=== PATIENT | female | born 1970 | race American Indian/Alaskan Native ===

== ENCOUNTER 2018-07-18 16:24 | Emergency (ER) | payer SELFPAY ==
[2018-07-18] MEDS ORDERED: ZOFRAN IV ONE (16:57)
--- NOTE | 2018-07-18 17:06 | Emergency Department Report ---
ED Fall HPI - General Chief Complaint: Dyspnea/Respdistress Stated Complaint: DIFFICULTY BREATHING Time Seen by Provider: 07/18/18 16:53 Source: patient, EMS Mode of arrival: Stretcher - History of Present Illness Initial Comments: Patient is 47 years old female with no significant past medical history. Patient presented to the ER complaining of left lower chest pain after fall 3 days ago. Patient stated that she slipped and fell landed on her left side. Patient is complaining of shortness of breath and pain when she take a deep breath with movement also. Patient denied any head injury, neck injury. Patient denied any other symptoms. MD Complaint: fall -: days(s) Fall From: standing When Fall Occurred: # days [employer] Fall Witnessed: yes, by family Place Fall Occurred: home Loss of Consciousness: none Prolonged Down Time?: no Symptoms Prior to Fall: none Location: chest Severity: moderate Severity scale (0 -10): 6 Context: tripped/slipped - Related Data Allergies Allergy/AdvReac Type Severity Reaction Status Date / Time acetaminophen [From Percocet] Allergy Unknown Verified 07/18/18 16:36 hydrocodone [From Lortab] Allergy Unknown Verified 07/18/18 16:36 oxycodone [From Percocet] Allergy Unknown Verified 07/18/18 16:36 ED Review of Systems ROS: Stated complaint: DIFFICULTY BREATHING Other details as noted in HPI Comment: All other systems reviewed and negative Constitutional: denies: chills, fever Respiratory: shortness of breath. denies: cough, orthopnea, SOB with exertion, SOB at rest, wheezing Cardiovascular: denies: chest pain, palpitations, dyspnea on exertion Gastrointestinal: denies: abdominal pain, nausea, vomiting, diarrhea, constipation, hematemesis, melena, hematochezia Musculoskeletal: denies: back pain Neurological: denies: headache, weakness, numbness, paresthesias, confusion, abnormal gait ED Past Medical Hx - Past Medical History Previous Medical History?: No - Surgical History Past Surgical History?: No - Social History Smoking Status: Current Every Day Smoker Substance Use Type: Alcohol ED Physical Exam - General Limitations: No Limitations General appearance: alert, in no apparent distress, anxious - Head Head exam: Present: atraumatic, normocephalic, normal inspection - Eye Eye exam: Present: normal appearance, PERRL - ENT ENT exam: Present: normal exam, normal orophraynx, mucous membranes moist - Neck Neck exam: Present: normal inspection, full ROM. Absent: tenderness, meningismus, lymphadenopathy, thyromegaly - Respiratory Respiratory exam: Present: normal lung sounds bilaterally, chest wall tenderness. Absent: respiratory distress, wheezes, rales, rhonchi, stridor, accessory muscle use, decreased breath sounds, prolonged expiratory - Cardiovascular Cardiovascular Exam: Present: regular rate, normal rhythm, normal heart sounds - GI/Abdominal GI/Abdominal exam: Present: soft, normal bowel sounds. Absent: distended, tenderness, guarding, rebound, rigid, organomegaly, mass, bruit, pulsatile mass, hernia - Extremities Exam Extremities exam: Present: normal inspection, full ROM, normal capillary refill. Absent: pedal edema, calf tenderness - Back Exam Back exam: Present: normal inspection, full ROM. Absent: tenderness, CVA tenderness (R), CVA tenderness (L), muscle spasm, paraspinal tenderness, vertebral tenderness, rash noted - Neurological Exam Neurological exam: Present: alert, oriented X3, CN II-XII intact, normal gait, reflexes normal - Skin Skin exam: Present: warm, intact, normal color ED Course Vital Signs 07/18/18 16:33 Temperature 98 F Pulse Rate 18 L Respiratory 18 Rate Blood Pressure 162/99 O2 Sat by Pulse 99 Oximetry ED Medical Decision Making - Radiology Data Radiology results: report reviewed Chest x-ray with rib details is negative for acute finding. No pneumothorax or a fracture. - Medical Decision Making Patient is 47 years old female with no significant past medical history. Patient presented to the ER complaining of left lower chest pain after fall 3 days ago. Patient stated that she slipped and fell landed on her left side. Patient is complaining of shortness of breath and pain when she take a deep breath with movement also. Patient denied any head injury, neck injury. Patient denied any other symptoms. Patient stated that she is feeling much better. I advised the patient to follow his primary care physician in the next 2-3 days and to return to the emergency room if her symptoms have not improved. Critical care attestation.: If time is entered above; I have spent that time in minutes in the direct care of this critically ill patient, excluding procedure time. ED Disposition Clinical Impression: Fall, Contusion of left chest wall Disposition: DC-01 TO HOME OR SELFCARE Is pt being admited?: No Condition: Stable Instructions: Fall Prevention (ED), Contusion in Adults (ED) Referrals: MARLY YIP [Primary Care Provider] - 3-5 Days Forms: Work/School Release Form(ED)
--- NOTE | 2018-07-18 17:38 | XRay Report ---
FINAL REPORT EXAM: XR CHEST ROUTINE 2V HISTORY: fall, difficulty in breathing TECHNIQUE: Two view chest PA and lateral PRIORS: None. FINDINGS: Cardiac and mediastinal contours are unremarkable. No focal pulmonary infiltrate is identified. No pleural fluid collection seen. Pulmonary vasculature is unremarkable. IMPRESSION: Negative two-view chest
[2018-07-18] MEDS ORDERED: SUBLIMAZE IV ONE (18:00)
--- NOTE | 2018-07-18 18:24 | XRay Report ---
FINAL REPORT EXAM: XR RIBS UNILAT 2V LT HISTORY: fall, left chest pain TECHNIQUE: Left ribs three views PRIORS: None. FINDINGS: No rib fracture identified. No bony lesions seen. No evidence off pneumothorax or pleural effusion wi thin the left anslye thorax. Otherwise no acute findings. IMPRESSION: Negative rib series
[2018-07-18 19:51] VITALS: BP 122/74
== END 2018-07-18 19:51 | disposition home or self-care (01) ==
LOC: ED 16:24
DX: S20.212A Contusion of left front wall of thorax, initial encounter (principal); F17.200 Nicotine dependence, unspecified, uncomplicated; Z88.5 Allergy status to narcotic agent; W01.198A Fall on same level from slipping, tripping and stumbling with subsequent striking against other object, initial encounter; Y93.89 Activity, other specified; Y92.098 Other place in other non-institutional residence as the place of occurrence of the external cause; Y99.8 Other external cause status
CPT/HCPCS: 71046; 71100; 96374; 96375; 99283; J2405; J3010